=== PATIENT | male | born 1990 | race Caucasian/White ===

== ENCOUNTER 2016-11-12 10:44 | Emergency (ER) | payer OTHER ==
--- NOTE | 2016-11-12 11:49 | RAD ---
LEFT ANKLE 3 VIEWS HISTORY: Status post fall with remote injury of left ankle, lateral pain. COMPARISONS: 01/30/2016. TECHNIQUE: Frontal, lateral, and oblique views of the left ankle. ALIGNMENT: Grossly unremarkable. Ankle mortise intact. FRACTURE: No displaced acute fracture. SOFT TISSUES: Grossly unremarkable. No joint effusion. RADIOOPAQUE FOREIGN BODY: None. IMPRESSION: No gross malalignment or displaced acute fracture noted.
== END 2016-11-12 12:46 | disposition home or self-care (01) ==
LOC: ED 10:44
DX: S93.402A Sprain of unspecified ligament of left ankle, initial encounter (principal); W00.0XXA Fall on same level due to ice and snow, initial encounter